=== PATIENT | female | born 1970 | race Caucasian/White ===

== ENCOUNTER 2017-07-21 09:30 | Inpatient (IN) | payer OTHER ==
[2017-07-14 11:24] VITALS: BMI 19.2
--- NOTE | 2017-07-20 09:41 | HP ---
Admitting History and Physical - Primary Care Physician PCP: Fortunato Gabriel - Admission Chief Complaint: Left breast cancer History of Present Illness: 47 year old premenapausal female who felt left breast mass 01/2017 at 6:00 . Patient was breast feeding , one year . US in 04/2017 showed 1.6 cm mass at 6:00 left breast with irregular borders. 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 She refused mammogram and underwent breast MRI showing original breast cancer and a 5mm focus at 12:00 birad 4. She is choosing to have a mastectomy. History Source: Patient Limitations to Obtaining History: No Limitations - Past Medical History Renal/: Yes: Renal Calculi (with septicemia) ...LMP: 07/12/17 ...: No Endocrine: Yes: Hypothyroidism - Past Surgical History Past Surgical History: Yes: (2015), Hernia Repair (inguinal 1987) Additional Past Surgical History: septicemia 2003 related to renal calculi - Smoking History Smoking history: Never smoked Have you smoked in the past 12 months: No - Alcohol/Substance Use Hx Alcohol Use: No Home Medications - Allergies Allergies/Adverse Reactions: Allergies Allergy/AdvReac Type Severity Reaction Status Date / Time No Known Drug Allergies Allergy Verified 07/14/17 11:09 - Home Medications Home Medications: Ambulatory Orders Levothyroxine [Synthroid -] 88 mcg PO DAILY 07/14/17 Multivitamins [Tab-A-Vit -] 1 tab PO DAILY 07/14/17 [place]-3/Dha/Epa/Fish Oil [[place] 3 500 Softgel] 1 each PO DAILY 07/14/17 Family Disease History - Family Disease History Family Disease History: CA: Father (prostate ca 80) Physical Examination Constitutional: Yes: Well Nourished, No Distress Breast(s): Yes: Other ( Difusely nodular with 1.5 cm left breast mass at 6:00 firm and mobile. right breast negative no adenopathy bilaterally) Problem List - Problems (1) Breast cancer, left breast Code(s): C50.912 - MALIGNANT NEOPLASM OF UNSPECIFIED SITE OF LEFT FEMALE BREAST Qualifiers: Breast location: overlapping sites of breast Patient sex: female Assessment/Plan Left total mastectomy sentenel node biopsy , lymphoscintogram, possible axillary node dissection reconstruction
[2017-07-21] MEDS ORDERED: ceFAZolin SODIUM 1 GM VIAL ONE ×2 (10:16→16:10)
[2017-07-21] MEDS ORDERED: ISOSULFAN BLUE 10 MG/ML VIAL SQ ONE (10:16)
[2017-07-21] MEDS ORDERED: BUPIVACAINE HCL/PF 2.5 MG/ML - 30 ML VIAL IJ ONE (10:16)
[2017-07-21] MEDS ORDERED: GENTAMICIN SO4 80 MG/2 ML VIAL ONE (10:16)
[2017-07-21] MEDS ORDERED: MIDAZOLAM HCL 2 MG/2 ML SINGLE DOSE VIAL ONE (10:20)
[2017-07-21] MEDS ORDERED: DEXAMETHASONE SOD PHOSPHATE/PF 10 MG/ML SDV ONE (10:20)
[2017-07-21] MEDS ORDERED: BUPIVACAINE HCL/PF (5 MG/ML) 30 ML VIAL IJ ONE (10:20)
[2017-07-21] MEDS ORDERED: ONDANSETRON 4 MG/2 ML VIAL IVPUSH PRN ×2 (11:17→13:05)
[2017-07-21] MEDS ORDERED: oxyCODONE HCL 5 MG TABLET PO PRN ×2 (11:22→11:23)
[2017-07-21] MEDS ORDERED: LACTATED RINGERS SOLUTION 1,000 ML IV SCH (11:30)
[2017-07-21] MEDS ORDERED: ACETAMINOPHEN 325 MG TABLET (FP) PO PRN (13:05)
[2017-07-21] MEDS ORDERED: ZOLPIDEM TARTRATE 5 MG TABLET PO PRN (13:05)
[2017-07-21] MEDS ORDERED: DEXTROSE 5%-0.45% SALINE 1,000 ML IV SCH (13:15)
[2017-07-21 13:57] LABS: HIV 1 & 2 AB NEGATIVE; HIV 1 AGp24 NEGATIVE
[2017-07-21] MEDS ORDERED: DEXAMETHASONE SOD PHOSPHATE 4 MG/1 ML VIAL ONE (14:31)
[2017-07-21] MEDS ORDERED: ONDANSETRON 4 MG/2 ML VIAL ONE (14:31)
[2017-07-21] MEDS ORDERED: PROPOFOL 20 ML ONE (14:33)
[2017-07-21] MEDS ORDERED: NITROGLYCERIN 2% OINTMENT - 1GM PACKET TD ONE ×2 (14:45→14:47)
[2017-07-21] MEDS ORDERED: NEOSTIGMINE METHYLSULFATE 0.5 MG/ML - 10 ML MDV ONE ×4 (14:45)
[2017-07-21] MEDS ORDERED: traMADol HCL 50 MG TABLET ONE (16:05)
[2017-07-21] MEDS ORDERED: ACETAMINOPHEN 325 MG TABLET (FP) ONE (16:05)
[2017-07-21] MEDS: traMADol HCL 50 MG TABLET PO SCH ×2 (16:10→20:47)
[2017-07-21] MEDS: ACETAMINOPHEN 325 MG TABLET (FP) PO SCH ×2 (16:10→20:48)
--- NOTE | 2017-07-21 18:21 | PN ---
Progress Note (short form) - Note Progress Note: vss af no collection ELEONORA working well with thin output pain well controled
[2017-07-21] MEDS: CEFAZOLIN 1 GM/D5W 1 GRAM/50 ML BAG IVPB SCH ×2 (18:30→20:48)
[2017-07-21] MEDS: diazePAM 2 MG TABLET PO SCH ×2 (18:37→23:36)
[2017-07-22] MEDS: traMADol HCL 50 MG TABLET PO SCH ×4 (03:33→15:06)
[2017-07-22] MEDS: ACETAMINOPHEN 325 MG TABLET (FP) PO SCH ×4 (03:34→15:05)
[2017-07-22] MEDS: CEFAZOLIN 1 GM/D5W 1 GRAM/50 ML BAG IVPB SCH ×3 (03:34→15:07)
[2017-07-22] MEDS: diazePAM 2 MG TABLET PO SCH ×2 (06:18→15:07)
[2017-07-22] MEDS ORDERED: LEVOTHYROXINE NA 88 MCG TABLET (FP) PO SCH (07:00)
[2017-07-22] MEDS ORDERED: HEPARIN NA (PORCINE) 5,000 UNITS/ML 1ML VIAL SQ SCH (08:00)
[2017-07-22 08:33] LABS: MCH 29.9 pg (25.7-33.7); MCHC 32.9 g/dl (32.0-36.0); MEAN CELL VOLUME 90.9 fl (80-96); RDW 12.8 % (11.6-15.6)
[2017-07-22 08:34] LABS: MEAN PLT VOLUME 12.6 fl (7.5-11.1); PLATELET COUNT 150 K/MM3 (134-434)
--- NOTE | 2017-07-22 09:09 | PN ---
Progress Note, Physician Chief Complaint: POD#1 Left breast cancer S/P total mastectomy with positive sentenel node , axillary node dissection overhead garage door hanger and alloderm History of Present Illness: Patient is uncomfortable but pain managed with current anesthesia protocol, OOB , eating no nausea or vomiting - Current Medication List Current Medications: Active Medications Acetaminophen (Tylenol -) 650 mg PO Q6H [facility] Last Admin: 07/22/17 03:34 Dose: 650 mg Acetaminophen (Tylenol -) 650 mg PO Q4H PRN PRN Reason: FEVER Diazepam (Valium -) 2 mg PO Q8H [facility] Last Admin: 07/22/17 06:18 Dose: Not Given Heparin Sodium (Porcine) (Heparin -) 5,000 unit SQ BID@0800,2000 [facility] Last Admin: 07/22/17 08:41 Dose: 5,000 unit Cefazolin Sodium (Ancef 1 Gm Premixed Ivpb -) 1 gram in 50 mls @ 100 mls/hr IVPB Q6H-IV [facility] Stop: 07/28/17 14:59 Last Admin: 07/22/17 03:34 Dose: 100 mls/hr Dextrose/Sodium Chloride (D5-1/2ns -) 1,000 mls @ 100 mls/hr IV ASDIR [facility] Last Admin: 07/21/17 11:45 Dose: 100 mls/hr Levothyroxine Sodium (Synthroid -) 88 mcg PO DAILY@0700 [facility] Last Admin: 07/22/17 06:18 Dose: 88 mcg Ondansetron HCl (Zofran Injection) 4 mg IVPUSH Q6H PRN PRN Reason: NAUSEA AND/OR VOMITING Oxycodone HCl (Roxicodone -) 5 mg PO Q4H PRN PRN Reason: PAIN LEVEL 1-5 Oxycodone HCl (Roxicodone -) 10 mg PO Q4H PRN PRN Reason: PAIN LEVEL 6-10 Tramadol HCl (Ultram -) 50 mg PO Q6H [facility] Last Admin: 07/22/17 03:33 Dose: 50 mg Zolpidem Tartrate (Ambien -) 5 mg PO HS PRN PRN Reason: Insomnia - Objective Vital Signs: Vital Signs Temperature 97.5 F L 07/22/17 06:00 Pulse Rate 74 07/22/17 07:20 Respiratory Rate 16 07/22/17 07:20 Blood Pressure 94/46 07/22/17 07:20 O2 Sat by Pulse Oximetry (%) 100 07/21/17 22:56 Constitutional: Yes: No Distress Breast(s): Yes: Other (Flap viable some echymosis over flap and dark area of skin at incision site, incision intact karlee drains funtioning) Labs: CBC, BMP 07/22/17 07:30 Problem List - Problems (1) Breast cancer, left breast Code(s): C50.912 - MALIGNANT NEOPLASM OF UNSPECIFIED SITE OF LEFT FEMALE BREAST Qualifiers: Breast location: overlapping sites of breast Patient sex: female Assessment/Plan cont IV antibiotics continue oral pain meds OOB spirometry SCD while in bed
[2017-07-22 09:29] VITALS: BP 106/52; PULSE 83; TEMP 98.1
--- NOTE | 2017-07-22 09:50 | OP ---
DATE OF OPERATION: 07/21/2017 PREOPERATIVE DIAGNOSIS: Left breast cancer. POSTOPERATIVE DIAGNOSIS: Left breast cancer with axillary metastasis. PROCEDURE: Left modified radical mastectomy with left sentinel node biopsy. ANESTHESIA: General intubated. ATTENDING SURGEON: Joni Gabriel MD CAR FERRY CAPTAIN: BINA Mcghee ESTIMATED BLOOD LOSS: 300 mL COMPLICATIONS: None. DESCRIPTION OF PROCEDURE: Patient was made aware of the risks and benefits of the procedure and consented. She was placed in supine position on the operating room table after going to Nuclear Medicine where left breast was injected with magnesium for lymphatic mapping. After general anesthesia was induced, the patient was intubated. The operative site was prepped and draped in the usual sterile fashion. Next, 2.5 mL of 1% isosulfan blue were infiltrated into the peritumoral tissues. Waiting approximately 10 minutes, with gentle manual compression, a curvilinear incision was made in the left axilla using blunt and sharp dissection. Tissues were dissected downward, revealing 2 clusters of blue lymph nodes which were all excised and submitted for frozen section. Frozen section was reported as one positive node out of seven taken. The breast was then approached. A horizontally-oriented, elliptical incision was made around the nipple, sparing some of the areola. Using electrocautery, skin flaps were made superior to the clavicle, medial to the sternum, lateral to latissimus dorsi, and anterior to inframammary fold. The breast cancer was very superficial, and it was basically sharply stripped off of the subcutaneous fat. The breast tissue was then taken off the pectoralis muscle, extending from medial to lateral to the latissimus dorsi. This was submitted as left breast with a short suture superior, long suture lateral. Specimen radiograph confirmed the presence of the cancer, but no clip was found at that time. However, because of the thin flap and the palpable nature of the cancer, I think that the clip is either must have been removed during surgery. The axillary dissection was then approached. The clavipectoral fascia was incised, and the axillary contents were retracted laterally, revealing along the chest wall, the long thoracic nerve. This was retracted along its length medially, and as the specimen was retracted laterally, the thoracodorsal trunk was identified and spared. The axillary contents were submitted as axillary contents, and investigation of the axilla revealed the thoracodorsal trunk and long thoracic nerve were intact. Palpation of the rest of the axilla revealed no evidence of axillary metastasis. Hemostasis was maintained by electrocautery and hemoclips. The procedure was then turned over to Dr. Douglas Ramos who is doing an expanded reconstruction. He will dictate his portion separately. JOIN GABRIEL M.D. [id number]
--- NOTE | 2017-07-22 11:08 | PN ---
Progress Note (short form) - Note Progress Note: Post op day#1.S/p left mastectomy with sentinel LN biopsy and L breast reconstruction under Ga uneventful.Patient stable and has pain score of 3-4/10 for which she is on medication.No any anesthesia related problem.Patient Dc from the anesthesia care,
--- NOTE | 2017-07-22 14:15 | PN ---
Progress Note (short form) - Note Progress Note: All tissues viable, healing well, OK for discharge VSS ELEONORA thin and functioning f/u one week
--- NOTE | 2017-07-23 14:49 | OP ---
DATE OF OPERATION: TITLE OF PROCEDURE: Left breast reconstruction using acellular dermal matrix and immediate insertion of tissue clinical dental technician, SPY intraoperative angiography interpretation, and complex, 4-cm left axillary wound closure. ATTENDING SURGEON: Douglas Rizzo MD ASSISTANTS: None. Procedures performed in combination with a left mastectomy and axillary lymph node dissection performed by Dr. Fortunato Gabriel; that portion of the procedure to be dictated separately by Dr. Fortunato Gabriel. The patient is seen in the holding area, marked for the access to the mastectomy, and the patient is then prepped and draped and positioned by the general surgical team. I am called in at the completion of the mastectomy. It has turned out the patient's sentinel lymph node biopsy was positive for breast cancer within the lymph nodes, and she had been converted to a left axillary lymph node dissection. At the completion of this, the wounds are copiously irrigated, and hemostasis is meticulously achieved. At this point, it is determined that the patient's pectoralis major muscle is insufficiently attached to maintain its inferior attachments, and a subpectoral dissection necessitates division of the inferior pectoral attachments. The pectoralis major muscle is elevated from lateral to medial, creating inferior pole defect which is to be reconstructed with acellular dermal matrix. At this point, the DermACELL brand acellular dermal matrix is brought onto the field. It is an 8 x 16 piece, rinsed in triple-antibiotic solution. The triple-antibiotic solution is a liter of normal saline with a gram of Ancef, 50,000 units of bacitracin, and 80 mg of gentamicin. It is oriented properly with the reticular-dermal side facing superficially. It is sewn to the chest wall inferomedially, inferiorly, and inferolaterally in accordance to a previously marked line where the IMF of the lifted contralateral breast will result. This suturing of the acellular dermal matrix is performed with a running, locking, 2-0 PDS suture. At this point, once the pocket has been fully created, gloves are changed, and the tissue clinical dental technician is then brought onto the field. Tissue clinical dental technician is an Allergan [id number] tissue clinical dental technician of 12 cm width. The pocket created accommodates the 12-cm-width implant. It is sutured in place using the incorporated suture tabs and seated at the inframammary fold. It is evacuated of all air in situ. Superior border of the acellular dermal matrix is then sewn to the inferior free border of the pectoralis major muscle with a running 2-0 PDS suture. Using the magnet finder, the tissue clinical dental technician is inflated to 100 mL of normal saline. The wounds are copiously irrigated with triple-antibiotic solution, and meticulous hemostasis is once again performed. The remaining areola is marked, and it is aligned. It is also pexied to the acellular dermal matrix to control its position during tissue expansion. A size 10 flat ELEONORA drain is placed into the wound through separate lateral incisions and secured with 2-0 silk drain sutures. One drain is placed in the inferior fornix of the wound, and a separate drain is on the lateral and superior of the wound. This second drain is also draping through the axilla to prevent a collection in the site of the lymph node dissection. The mastectomy skin flaps are then closed first with a running breast capsular suture with 3-0 Monocryl suture, followed by a series of interrupted, buried, deep dermal, 3-0 Monocryl suture, followed by a running subcuticular 3-0 Monocryl suture. A lateral dog ear is excised and closed separately. At this point, the SPY angiography is brought onto the field, and the skin flaps are assessed. After injection of indocyanine, the perfusion to the entirety of the skin flaps is found to be qualitatively excellent. The axillary wound is then closed, first with a series of interrupted 3-0 Monocryl suture within the deep axillary fascia. Skin is then closed with a series of interrupted, buried, deep dermal, 3-0 Monocryl suture, followed by a running subcuticular 3-0 Monocryl suture. Drains are placed to bulb suction. The wounds are dressed with bacitracin, nitroglycerin paste, Xeroform gauze, ABD gauze, and a surgical bra. Please note that throughout the entirety of the procedure, the patient had been wearing sequential compression devices and AMANDA hose. Patient received a gram of Ancef preoperatively. At the point of my scrubbing into the procedure, a timeout had been called. Patient, procedure, side, and sites were verified. The tissue clinical dental technician that was used was verified. DOUGLAS RIZZO M.D. [id number]
--- NOTE | 2017-07-24 12:46 | PATH ---
Surgical Pathology Report Patient Name: NIGEL GALLEGO Med. Rec. #: [id number] /Age/Gender: 1970 (Age: 47) / F Account: [id number] Location: [facility] MED-SURG Taken: 07/21/2017 Received: 07/21/2017 Reported: 07/24/2017 Physicians: Fortunato Gabriel M.D. Specimen(s) Received A: LEFT AXILLARY SENTINAL NODE. FS B: LEFT BREAST MASTECTOMY C: LEFT AXILLARY CONTENTS Clinical History Left breast invasive cancer Intraoperative Consult Diagnosis Left axillary sentinel nodes, frozen section: Metastatic carcinoma involving one of 7 lymph nodes (1/7). Dr. Bety Martinez M.D., 07/21/17 Final Diagnosis A. LYMPH NODES, LEFT AXILLARY SENTINEL NODES, EXCISION: METASTATIC CARCINOMA PRESENT IN ONE OF SEVEN LYMPH NODES (1/7), 8 MM IN GREATEST DIMENSION. NO EXTRACAPSULAR EXTENSION IDENTIFIED. B. LEFT BREAST MASTECTOMY: INVASIVE DUCTAL CARCINOMA, ALAN GRADE 2 OF 3 (TUBULE SCORE 3 OF 3, NUCLEAR GRADE 2 OF 3, MITOTIC SCORE 1 OF 3, TOTAL 6 OF 9), MEASURING 1.5 CM IN GREATEST DIMENSION. MINOR COMPONENT OF DUCTAL CARCINOMA IN SITU (DCIS), INTERMEDIATE NUCLEAR GRADE, SOLID AND CRIBRIFORM PATTERN WITH ASSOCIATED CALCIFICATION PRESENT. ADDITIONAL SEPARATE FOCUS OF DCIS, INTERMEDIATE NUCLEAR GRADE, SOLID PATTERN WITH ASSOCIATED CALCIFICATION MEASURING APPROXIMATELY 1 MM IN GREATEST DIMENSION PRESENT IN RANDOM SECTION FROM LOWER INNER QUADRANT. INVASIVE CARCINOMA IS 1 MM FROM THE ANTERIOR MARGIN. DCIS IS 5 MM FROM THE ANTERIOR MARGIN. NO DEFINITE VASCULAR INVASION IDENTIFIED. CHANGES CONSISTENT WITH PRIOR BIOPSY SITE PRESENT. REMAINING BREAST TISSUE WITH SMALL FIBROADENOMA, ALONG WITH FIBROCYSTIC CHANGES INCLUDING ADENOSIS, STROMAL FIBROSIS, DUCTAL DILATATION, AND SECRETORY CHANGES. C. LYMPH NODES, LEFT AXILLARY, DISSECTION: NO METASTATIC CARCINOMA IDENTIFIED IN SEVEN LYMPH NODES (0/7). Comment: Also see prior Slide Review [id number]. Immunohistochemical stains for p63 and SMM-HC on Specimen B performed and interpreted at [facility] show loss of the myoepithelial cell layer in the areas of invasive carcinoma. Comments Breast Invasive Carcinoma: Surgical Pathology Cancer Case Summary Based on AJCC/UICC TNM, 7th edition Procedure _X__ Total mastectomy (including nipple and skin) Lymph Node Sampling (select all that apply) (required only if lymph nodes are present in the specimen) _X__ [place] lymph node(s) _X__ Axillary dissection (partial or complete dissection) Specimen Laterality _X__ Left Tumor Size: Size of Largest Invasive Carcinoma Greatest dimension of largest focus of invasion over 1 mm: 15 mm Tumor Focality _X__ Single focus of invasive carcinoma Macroscopic and Microscopic Extent of Tumor Skin _X__ Invasive carcinoma does not invade into the dermis or epidermis Nipple _X__ DCIS does not involve the nipple epidermis Ductal Carcinoma In Situ (DCIS) _X__ DCIS is present _X__ as a minor component (< 25% of tumor) Histologic Type of Invasive Carcinoma : _X__ Invasive carcinoma of no special type (ductal, not otherwise specified) Histologic Grade: (Alan Histologic Score) Tubular Differentiation _X__ Score 3 Nuclear Pleomorphism _X__ Score 2 Mitotic Rate _X__ Score 1 Overall Grade _X__ Grade 2: scores of 6 or 7 (moderately differentiated) Margins _X__ Margins uninvolved by invasive carcinoma (required only if residual invasive carcinoma is present in specimen) Distance from closest margin: 1 mm Specify margin: ANTERIOR _X__ Margins uninvolved by DCIS (required only if residual DCIS is present in specimen) Distance from closest margin: 5 mm Specify margin: ANTERIOR Lymph-Vascular Invasion _X__ Not identified Lymph Nodes Total number of lymph nodes examined (sentinel and nonsentinel): 14 Number of sentinel lymph nodes examined: 7 Number of lymph nodes with macrometastases ( > 2 mm): 1 Number of lymph nodes with micrometastases (>0.2 mm to 2 mm and/or >200cells):0 Number of lymph nodes with isolated tumor cells (=0.2 mm and =200 cells): 0 Size of largest metastatic deposit (if present): 8 mm Extranodal Extension _X__ Not identified Pathologic Staging (pTNM) Primary Tumor (Invasive Carcinoma): pT1c Regional Lymph Nodes (pN): pN1a Biomarker Studies Results of ER and WV studies performed on this specimen (block #B3) at [facility] are as follows: ER (clone [id number] mouse monoclonal antibody by [employer]): >90% nuclear staining with strong intensity (Positive). WV (clone16 mouse monoclonal antibody by [employer]) : >90% nuclear staining with strong intensity (Positive). Results of Her2 studies will be reported separately in an addendum. Positive and negative controls (internal if applicable) show appropriate results. Formalin fixation and cold ischemic times are within current ASCO/CAP recommendations for ER, WV and Her2 testing. Electronically Signed Chacorta Sanchez M.D. Addendum Reported: 07/27/2017 Addendum Diagnosis Results of Her2 (IHC) & Ki-67 studies performed on block "B3 " at [place], [place] ([id number]) are as follows: Her2 IHC (EP3 from [employer], formerly known as [id number], using [employer] Polymer Refine detection kit): 1+ NEGATIVE Ki-67: ~25% (Intermediate proliferative index) Positive and negative controls (internal if applicable) show appropriate results. Chacorta Sanchez M.D. Gross Description A. Received fresh for frozen section labeled "left axillary sentinel nodes," are 5 portions of fibrofatty tissue from which 7 lymph nodes ranging from 0.2-1.0 cm are dissected. A frozen section is performed on the lymph nodes. The frozen section residue is entirely submitted in 2 cassettes as follows: 1-two large whole lymph nodes; 2-five small whole lymph nodes. B. Received in formalin, labeled "left breast mastectomy," is a 264 gram, 14.0 x 11.5 x 3.2 cm. left mastectomy specimen with a short suture marking the superior aspect and a long suture marking the lateral aspect of the specimen, per the surgeon. The anterior surface displays a 5.0 x 2.7 cm laguna, elliptical portion of skin with a 1.1 cm in diameter nipple. The deep margin is inked black and the anterior soft tissue margin is inked blue. The specimen is serially sectioned from medial to lateral. Sectioning reveals a 1.5 x 1.2 x 1.1 cm laguna, indurated mass in the lower outer quadrant (LOQ). The mass is focally 0.2 cm from the anterior soft tissue margin. The mass is 1.7 cm from the deep margin. The remaining breast parenchyma displays abundant dense, white, focally firm fibrous tissue. [employer] sections are submitted in 15 cassettes as follows: 1-serially sectioned nipple; 2-subareolar shave; 3-4-one full face section of LOQ mass each (each with anterior soft tissue margin); 5-additional mass with anterior soft tissue margin; 1-4-eqqnafgnjq LOQ tissue; 8-9-upper outer quadrant; 10-11-upper inner quadrant; 12-13-lower inner quadrant; 14-skin and anterior soft tissue margin; 15-deep margin. Time to formalin fixation: 19 minutes Total formalin fixation time: Approximately 29 hours. C. Received in formalin labeled "left axillary contents," is a 7.4 x 6.0 x 2.0 cm aggregate of yellow, lobulated adipose tissue. Sectioning reveals multiple laguna, irregular lymph nodes ranging from 0.4-2.3 cm in greatest dimension. Additionally, there is a 2.8 cm in greatest dimension hemorrhagic focus identified. Sections are submitted in 4 cassettes as follows: 1-2-two whole possible lymph nodes each; 3-three whole possible lymph nodes; 4-section of hemorrhagic focus. 07/22/201707/22/2017
== END 2017-07-22 16:51 | disposition home or self-care (01) | DRG 362 ==
LOC: FM/S 09:34
PROVIDERS: ADMIT Surgery Surgical Oncology; ATTEND Surgery Surgical Oncology
PROC: 07B60ZX Excision of Left Axillary Lymphatic, Open Approach, Diagnostic (ICD-10-PCS; 2017-07-21)
PROC: 0HTU0ZZ Resection of Left Breast, Open Approach (ICD-10-PCS; principal; 2017-07-21 10:53)
PROC: 07T60ZZ Resection of Left Axillary Lymphatic, Open Approach (ICD-10-PCS; 2017-07-21 10:53)
PROC: 0HHU0NZ Insertion of Tissue Expander into Left Breast, Open Approach (ICD-10-PCS; 2017-07-21 10:53)
DX: C50.812 Malignant neoplasm of overlapping sites of left female breast (principal); C77.3 Secondary and unspecified malignant neoplasm of axilla and upper limb lymph nodes; E03.9 Hypothyroidism, unspecified; Z80.42 Family history of malignant neoplasm of prostate
CPT/HCPCS: 36415; 78195-TC; 84703; 85027; 86803; 87389; 88307-TC; 88331-TC; 88332; 88341-TC; 94010; 94760; A9541; J1644

== ENCOUNTER 2017-09-04 13:45 | Day surgery (SDC) | payer OTHER ==
--- NOTE | 2017-08-31 11:57 | HP ---
Admitting History and Physical - Primary Care Physician PCP: Fortunato Gabriel - Admission Chief Complaint: left breast cancer History of Present Illness: Patient is S/P left mastectomy (sec to invasive ductal ca) with axillary node biopsies who on final path was noted to have 1/7 positive nodes. Patient is now presenting for lifeport insertion in preparation for chemo therapy. History Source: Patient Limitations to Obtaining History: No Limitations - Past Medical History Renal/: Yes: Renal Calculi (with septicemia) ...LMP: 07/12/17 Endocrine: Yes: Hypothyroidism - Past Surgical History Past Surgical History: Yes: (2015), Hernia Repair (inguinal 1987) - Smoking History Smoking history: Never smoked Have you smoked in the past 12 months: No - Alcohol/Substance Use Hx Alcohol Use: No Home Medications - Allergies Allergies/Adverse Reactions: Allergies Allergy/AdvReac Type Severity Reaction Status Date / Time No Known Drug Allergies Allergy Verified 07/14/17 11:09 - Home Medications Home Medications: Ambulatory Orders Levothyroxine [Synthroid -] 88 mcg PO DAILY 07/14/17 Multivitamins [Tab-A-Vit -] 1 tab PO DAILY 07/14/17 [place]-3/Dha/Epa/Fish Oil [[place] 3 500 Softgel] 1 each PO DAILY 07/14/17 Family Disease History - Family Disease History Family Disease History: CA: Father (prostate ca 80) Review of Systems - Review of Systems Constitutional: reports: No Symptoms Cardiovascular: reports: No Symptoms Respiratory: reports: No Symptoms Physical Examination Constitutional: Yes: Well Nourished Breast(s): Yes: Left (Left well healed incision without erythema or discharge noted.) Problem List - Problems (1) Breast cancer, left breast Code(s): C50.912 - MALIGNANT NEOPLASM OF UNSPECIFIED SITE OF LEFT FEMALE BREAST Qualifiers: Breast location: overlapping sites of breast Estrogen receptor status: positive Patient sex: female Qualified Code(s): C50.812 - Malignant neoplasm of overlapping sites of left female breast; Z17.0 - Estrogen receptor positive status [ER+]; Z17.0 - Estrogen receptor positive status [ER+] Assessment/Plan insertion of infusaport
[2017-09-03 11:07] VITALS: BMI 19.2
[2017-09-04] MEDS ORDERED: ONDANSETRON 4 MG/2 ML VIAL IVPUSH PRN ×2 (16:07→16:47)
[2017-09-04] MEDS ORDERED: LIDOCAINE HCL 1%, 10 MG/ML (20ML VIAL) ONE ×2 (16:10→16:14)
[2017-09-04] MEDS ORDERED: BUPIVACAINE HCL/PF 0.25% (2.5MG/ML) 10 ML VIAL ONE ×3 (16:10→16:15)
[2017-09-04] MEDS ORDERED: DEXTROSE 5%-0.45% SALINE 1,000 ML IV SCH (16:15)
[2017-09-04] MEDS ORDERED: KETOROLAC TROMETHAMINE 30 MG/1 ML VIAL IVPUSH ONE (16:15)
[2017-09-04] MEDS ORDERED: PROPOFOL 20 ML ONE ×2 (16:17→16:44)
[2017-09-04] MEDS ORDERED: MIDAZOLAM HCL 2 MG/2 ML SINGLE DOSE VIAL ONE (16:17)
[2017-09-04] MEDS ORDERED: ceFAZolin SODIUM 1 GM VIAL IVPB ONE (16:30)
[2017-09-04] MEDS ORDERED: ceFAZolin SODIUM 1 GM VIAL ONE (16:36)
[2017-09-04] MEDS ORDERED: HEPARIN NA (PORCINE) 5,000 UNITS/ML 1ML VIAL ONE (16:37)
[2017-09-04] MEDS ORDERED: oxyCODONE HCL 5 MG TABLET PO PRN (16:47)
[2017-09-04] MEDS ORDERED: LACTATED RINGERS SOLUTION 1,000 ML IV SCH (17:00)
[2017-09-04] MEDS ORDERED: LIDOCAINE HCL 1%, 10 MG/ML (20ML VIAL) INF ONE (17:03)
[2017-09-04 18:25] VITALS: TEMP 99
[2017-09-04 19:26] VITALS: BP 99/62; PULSE 75
--- NOTE | 2017-09-07 11:18 | OP ---
DATE OF OPERATION: 09/04/2017 PREOPERATIVE DIAGNOSIS: Left breast cancer. POSTOPERATIVE DIAGNOSIS: Left breast cancer. PROCEDURE: Right single-lumen subclavian replacement. ANESTHESIA: IV sedation with local. ATTENDING SURGEON: Fortunato Gabriel MD ESTIMATED BLOOD LOSS: Minimal. COMPLICATIONS: None. DESCRIPTION OF PROCEDURE: The patient was made aware of the risks and benefits of the procedure and consented. She was placed in the supine position, and after IV sedation was admitted, the operative site was prepped and draped in the usual sterile fashion. Then 1% lidocaine was used for local anesthesia. Using the Seldinger technique, the right subclavian vein was easily localized, and the wire was placed into good position and documented by intraoperative fluoroscopy. Incision was made over the puncture site, and another inferomedial incision was made. The inferior incision was enlarged, and an inferior pocket was made using blunt and sharp dissection. The catheter was tunneled from the large incision to the smaller incision. The port was placed into the inferior pocket, and the catheter was fashioned to the proper length. Under direct fluoroscopic control, dilator and introducer were introduced over the wire in good position. The dilator and wire were removed, and the catheter was placed through the introducer and, again, found to be in good position. The introducer was stripped away. There was easy withdrawal of blood and infusion of dilute heparinized saline. Then 1 mL of concerned heparinized saline was placed into the port. The port was then sutured to the deep tissue with 2-0 Prolene. The wounds were copiously irrigated with normal saline. Hemostasis was maintained by electrocautery. The wound was then closed with deep 3-0 Vicryl followed by a running subcuticular 4-0 Monocryl. Dermabond was then applied, and the patient having tolerated the procedure well, was transferred to the recovery room where chest x-ray showed good placement of the catheter with no evidence of complications. FORTUNATO GABRIEL M.D. [id number]
== END 2017-09-04 19:40 | disposition home or self-care (01) ==
LOC: JASU-SURG 13:45
PROVIDERS: ATTEND Surgery Surgical Oncology
PROC: B518ZZA Fluoroscopy of Superior Vena Cava, Guidance (ICD-10-PCS; 2017-09-04)
PROC: 02HV33Z Insertion of Infusion Device into Superior Vena Cava, Percutaneous Approach (ICD-10-PCS; principal; 2017-09-04 15:30)
DX: C50.912 Malignant neoplasm of unspecified site of left female breast (principal)
CPT/HCPCS: 36558; 77001; C1751; 71045-TC; 76000-TC; 84703; 94760; J1644

== ENCOUNTER 2017-09-07 07:28 | Day surgery (SDC) | payer OTHER ==
[2017-09-07] MEDS ORDERED: DEXAMETHASONE INJECTION 20 MG, RANITIDINE INJECTION 50 MG, DIPHENHYDRAMINE 50 MG in SOD... IVPB ONE (08:00)
[2017-09-07] MEDS ORDERED: PALONOSETRON HCL 0.25 MG/5 ML VIAL IVPB ONE (08:00)
[2017-09-07] MEDS ORDERED: DOCETAXEL IV ONE (08:30)
[2017-09-07] MEDS ORDERED: SODIUM CHLORIDE IV ONE (08:30)
[2017-09-07] MEDS ORDERED: SODIUM CHLORIDE IVPB ONE (09:30)
[2017-09-07] MEDS ORDERED: CYCLOPHOSPHAMIDE IVPB ONE (09:30)
[2017-09-07 11:26] LABS: BASO % 0.3 % (0-2.0); HEMOGLOBIN 13.3 GM/dL (10.7-15.3); LYMPH % 12.3 % (8-40); MCH 29.8 pg (25.7-33.7); MCHC 32.4 g/dl (32.0-36.0); MEAN CELL VOLUME 92.1 fl (80-96); MEAN PLT VOLUME 11.7 fl (7.5-11.1); MONO % 6.2 % (3.8-10.2); NEUT % 81.2 % (42.8-82.8); RBC 4.45 M/mm3 (3.60-5.2); RDW 12.9 % (11.6-15.6); WHITE BLOOD COUNT 9.2 K/mm3 (4.0-10.0)
[2017-09-07 11:50] LABS: ALBUMIN 4.1 g/dl (3.4-5.0); ALK PHOS 81 U/L (45-117); ANION GAP 8 (8-16); BILIRUBIN,DIRECT < 0.2 mg/dL (0.0-0.2); BILIRUBIN,TOTAL 0.3 mg/dL (0.2-1.0); BLOOD UREA NITROGEN 13 mg/dL (7-18); CALCIUM 9.3 mg/dL (8.5-10.1); CHLORIDE 105 mmol/L (98-107); CO2 27 mmol/L (21-32); CREATININE 0.6 mg/dL (0.55-1.02); GLUCOSE,RANDOM 133 mg/dL (74-106); MAGNESIUM 2.2 mg/dL (1.8-2.4); SGOT/AST 11 U/L (15-37); SGPT/ALT 25 U/L (12-78); SODIUM 140 mmol/L (136-145); TOT PROT 7.8 g/dl (6.4-8.2)
[2017-09-07 11:56] LABS: PLATELET COUNT 187 K/MM3 (134-434)
[2017-09-07 11:57] LABS: PLATELET ESTIMATE ADEQUATE
[2017-09-07] MEDS ORDERED: SODIUM CHLORIDE 500 ML IV STA ×2 (13:15→13:37)
[2017-09-07] MEDS ORDERED: DEXAMETHASONE SOD PHOSPHATE 10 MG/1 ML VIAL IVPB ONE (13:30)
[2017-09-07 16:29] VITALS: TEMP 98.1
[2017-09-07] MEDS ORDERED: PORTA CATH FLUSH 10 ML IVPUSH ONE (16:29)
[2017-09-07 17:15] VITALS: BP 100/62; PULSE 69
== END 2017-09-07 17:30 | disposition home or self-care (01) ==
LOC: JONCCHEMO 07:28 → J7W 12:56 → JONCCHEMO 17:30
PROVIDERS: ATTEND Internal Medicine Hematology & Oncology
DX: Z51.11 Encounter for antineoplastic chemotherapy (principal); C50.912 Malignant neoplasm of unspecified site of left female breast
CPT/HCPCS: 36415; 80053; 80076; 83735; 85025; 96361; 96367; 96375; 96413; 96417; J1100; J2469; J9070; J9171

== ENCOUNTER 2017-09-10 09:47 | Day surgery (SDC) | payer OTHER ==
[2017-09-10] MEDS ORDERED: TBO-FILGRASTIM 300 MCG/0.5 ML DISP.SYRINGE SQ ONE (12:30)
[2017-09-10 12:33] LABS: BASO % 0.6 % (0-2.0); EOS % 1.9 % (0-4.5); HEMATOCRIT 38.8 % (32.4-45.2); HEMOGLOBIN 12.6 GM/dL (10.7-15.3); LYMPH % 11.3 % (8-40); MCH 29.7 pg (25.7-33.7); MCHC 32.5 g/dl (32.0-36.0); MEAN CELL VOLUME 91.4 fl (80-96); MONO % 0.6 % (3.8-10.2); NEUT % 85.6 % (42.8-82.8); PLATELET COUNT 136 K/MM3 (134-434); RBC 4.24 M/mm3 (3.60-5.2); WHITE BLOOD COUNT 6.6 K/mm3 (4.0-10.0)
[2017-09-10 13:27] LABS: ALBUMIN 3.6 g/dl (3.4-5.0); ALK PHOS 81 U/L (45-117); ANION GAP 9 (8-16); BILIRUBIN,DIRECT < 0.2 mg/dL (0.0-0.2); BILIRUBIN,TOTAL 0.2 mg/dL (0.2-1.0); BLOOD UREA NITROGEN 15 mg/dL (7-18); CALCIUM 8.4 mg/dL (8.5-10.1); CHLORIDE 103 mmol/L (98-107); CO2 27 mmol/L (21-32); CREATININE 0.5 mg/dL (0.55-1.02); GLUCOSE,RANDOM 88 mg/dL (74-106); MAGNESIUM 2.2 mg/dL (1.8-2.4); POTASSIUM 3.8 mmol/L (3.5-5.1); SGOT/AST 16 U/L (15-37); SGPT/ALT 29 U/L (12-78); SODIUM 139 mmol/L (136-145); TOT PROT 6.9 g/dl (6.4-8.2)
[2017-09-10 16:46] VITALS: BP 90/49; PULSE 75; TEMP 98.3
== END 2017-09-10 14:00 | disposition home or self-care (01) ==
LOC: JONCCHEMO 09:47 → J7W 12:51 → JONCCHEMO 14:00
PROVIDERS: ATTEND Internal Medicine Hematology & Oncology
PROC: 3E013GC Introduction of Other Therapeutic Substance into Subcutaneous Tissue, Percutaneous Approach (ICD-10-PCS; principal; 2017-09-10)
DX: C50.812 Malignant neoplasm of overlapping sites of left female breast (principal); Z17.0 Estrogen receptor positive status [ER+]
CPT/HCPCS: 36415; 80053; 80076; 83735; 85025; 96372; J1447

== ENCOUNTER 2017-09-11 07:47 | Day surgery (SDC) | payer OTHER ==
[2017-09-11] MEDS ORDERED: TBO-FILGRASTIM 300 MCG/0.5 ML DISP.SYRINGE SQ ONE (08:00)
[2017-09-11 14:10] VITALS: BP 105/68; PULSE 87; TEMP 98.6
== END 2017-09-11 14:13 | disposition home or self-care (01) ==
LOC: JONCCHEMO 07:47 → J7W 13:53 → JONCCHEMO 14:13
PROVIDERS: ATTEND Internal Medicine Hematology & Oncology
PROC: 3E013GC Introduction of Other Therapeutic Substance into Subcutaneous Tissue, Percutaneous Approach (ICD-10-PCS; principal; 2017-09-11)
DX: C50.812 Malignant neoplasm of overlapping sites of left female breast (principal); Z17.0 Estrogen receptor positive status [ER+]
CPT/HCPCS: 96372; J1447

== ENCOUNTER 2017-09-12 14:25 | Day surgery (SDC) | payer OTHER ==
[~2017-09-12 14:25] MED LIST: TBO-FILGRASTIM 300 MCG/0.5 ML DISP.SYRINGE SQ ONE
[2017-09-12 15:28] VITALS: BP 97/56; PULSE 83; TEMP 98.6
== END 2017-09-12 15:09 | disposition home or self-care (01) ==
LOC: JONCCHEMO 14:25 → J7W 14:26 → JONCCHEMO 15:09
PROVIDERS: ATTEND Internal Medicine Hematology & Oncology
PROC: 3E013GC Introduction of Other Therapeutic Substance into Subcutaneous Tissue, Percutaneous Approach (ICD-10-PCS; principal; 2017-09-12)
DX: C50.812 Malignant neoplasm of overlapping sites of left female breast (principal); Z17.0 Estrogen receptor positive status [ER+]
CPT/HCPCS: 96372; J1447

== ENCOUNTER 2017-09-14 09:27 | Day surgery (SDC) | payer OTHER ==
[2017-09-14] MEDS ORDERED: TBO-FILGRASTIM 300 MCG/0.5 ML DISP.SYRINGE SQ ONE (10:30)
[2017-09-14 11:13] VITALS: BP 92/59; PULSE 75; TEMP 98.2
== END 2017-09-14 10:30 | disposition home or self-care (01) ==
LOC: JONCCHEMO 09:27 → J7W 09:52 → JONCCHEMO 10:30
PROVIDERS: ATTEND Internal Medicine Hematology & Oncology
PROC: 3E013GC Introduction of Other Therapeutic Substance into Subcutaneous Tissue, Percutaneous Approach (ICD-10-PCS; principal; 2017-09-14)
DX: C50.812 Malignant neoplasm of overlapping sites of left female breast (principal); Z17.0 Estrogen receptor positive status [ER+]; Z76.89 Persons encountering health services in other specified circumstances
CPT/HCPCS: 96372; J1447

== ENCOUNTER 2017-09-29 07:28 | Day surgery (SDC) | payer OTHER ==
[2017-09-29] MEDS ORDERED: DEXAMETHASONE INJECTION 20 MG, RANITIDINE INJECTION 50 MG, DIPHENHYDRAMINE 50 MG in SOD... IVPB ONE (10:00)
[2017-09-29] MEDS ORDERED: DEXAMETHASONE INJECTION 20 MG in SODIUM CHLORIDE 100 ML IVPB ONE (10:00)
[2017-09-29] MEDS ORDERED: PALONOSETRON HCL 0.25 MG/5 ML VIAL IVPUSH ONE (10:00)
[2017-09-29] MEDS ORDERED: SODIUM CHLORIDE IV ONE (10:30)
[2017-09-29] MEDS ORDERED: DOCETAXEL IV ONE (10:30)
[2017-09-29 10:41] LABS: BASO % 1.3 % (0-2.0); EOS % 0.6 % (0-4.5); HEMATOCRIT 34.9 % (32.4-45.2); HEMOGLOBIN 11.4 GM/dL (10.7-15.3); LYMPH % 28.9 % (8-40); MCH 29.5 pg (25.7-33.7); MCHC 32.6 g/dl (32.0-36.0); MEAN CELL VOLUME 90.5 fl (80-96); MEAN PLT VOLUME 11.1 fl (7.5-11.1); MONO % 8.8 % (3.8-10.2); NEUT % 60.4 % (42.8-82.8); PLATELET COUNT 278 K/MM3 (134-434); RBC 3.86 M/mm3 (3.60-5.2); RDW 13.2 % (11.6-15.6); WHITE BLOOD COUNT 4.5 K/mm3 (4.0-10.0)
[2017-09-29 11:05] LABS: ALBUMIN 3.5 g/dl (3.4-5.0); ALK PHOS 75 U/L (45-117); ANION GAP 7 (8-16); BILIRUBIN,DIRECT < 0.2 mg/dL (0.0-0.2); BILIRUBIN,TOTAL 0.4 mg/dL (0.2-1.0); BLOOD UREA NITROGEN 16 mg/dL (7-18); CALCIUM 8.1 mg/dL (8.5-10.1); CHLORIDE 107 mmol/L (98-107); CO2 28 mmol/L (21-32); CREATININE 0.5 mg/dL (0.55-1.02); GLUCOSE,RANDOM 100 mg/dL (74-106); POTASSIUM 3.9 mmol/L (3.5-5.1); SGOT/AST 11 U/L (15-37); SGPT/ALT 23 U/L (12-78); SODIUM 142 mmol/L (136-145); TOT PROT 6.5 g/dl (6.4-8.2)
[2017-09-29] MEDS ORDERED: CYCLOPHOSPHAMIDE IVPB ONE (11:30)
[2017-09-29] MEDS ORDERED: SODIUM CHLORIDE IVPB ONE (11:30)
[2017-09-29] MEDS ORDERED: SODIUM CHLORIDE 500 ML IV ONE (12:00)
[2017-09-29 17:30] VITALS: BP 90/55; PULSE 65; TEMP 98
[2017-09-29] MEDS ORDERED: PORTA CATH FLUSH 10 ML IVPUSH ONE (17:30)
== END 2017-09-29 17:25 | disposition home or self-care (01) ==
LOC: JONCCHEMO 07:28 → J7W 11:28 → JONCCHEMO 17:20
PROVIDERS: ATTEND Internal Medicine Hematology & Oncology
DX: Z51.11 Encounter for antineoplastic chemotherapy (principal); C50.812 Malignant neoplasm of overlapping sites of left female breast; Z17.0 Estrogen receptor positive status [ER+]
CPT/HCPCS: 36415; 80053; 80076; 83735; 84702; 85025; 96361; 96367; 96375; 96413; 96415; 96417; J1100; J2469; J9070; J9171

== ENCOUNTER 2017-09-30 07:56 | Day surgery (SDC) | payer OTHER ==
[2017-09-30] MEDS ORDERED: TBO-FILGRASTIM 300 MCG/0.5 ML DISP.SYRINGE SQ ONE (10:00)
[2017-09-30 16:09] VITALS: BP 92/56; PULSE 70; TEMP 97.7
== END 2017-09-30 14:26 | disposition home or self-care (01) ==
LOC: JONCCHEMO 07:56 → J7W 13:55 → JONCCHEMO 14:26
PROVIDERS: ATTEND Internal Medicine Hematology & Oncology
PROC: 3E013GC Introduction of Other Therapeutic Substance into Subcutaneous Tissue, Percutaneous Approach (ICD-10-PCS; principal; 2017-09-30)
DX: C50.812 Malignant neoplasm of overlapping sites of left female breast (principal); Z17.0 Estrogen receptor positive status [ER+]; Z76.89 Persons encountering health services in other specified circumstances
CPT/HCPCS: 96372; J1447

== ENCOUNTER 2017-10-01 07:37 | Day surgery (SDC) | payer OTHER ==
[2017-10-01] MEDS ORDERED: TBO-FILGRASTIM 300 MCG/0.5 ML DISP.SYRINGE SQ ONE (10:00)
[2017-10-01 15:21] VITALS: BP 94/60; PULSE 90; TEMP 98.3
== END 2017-10-01 12:20 | disposition home or self-care (01) ==
LOC: JONCCHEMO 07:37
PROVIDERS: ATTEND Internal Medicine Hematology & Oncology
PROC: 3E013GC Introduction of Other Therapeutic Substance into Subcutaneous Tissue, Percutaneous Approach (ICD-10-PCS; principal; 2017-10-01)
DX: C50.812 Malignant neoplasm of overlapping sites of left female breast (principal); Z17.0 Estrogen receptor positive status [ER+]; Z76.89 Persons encountering health services in other specified circumstances
CPT/HCPCS: 96372; J1447

== ENCOUNTER 2017-10-19 07:36 | Day surgery (SDC) | payer OTHER ==
[2017-10-19] MEDS ORDERED: PALONOSETRON HCL 0.25 MG/5 ML VIAL IVPUSH ONE (10:00)
[2017-10-19] MEDS ORDERED: DEXAMETHASONE INJECTION 20 MG, RANITIDINE INJECTION 50 MG, DIPHENHYDRAMINE 50 MG in SOD... IVPB ONE (10:00)
[2017-10-19] MEDS ORDERED: SODIUM CHLORIDE IV ONE (10:30)
[2017-10-19] MEDS ORDERED: DOCETAXEL IV ONE (10:30)
[2017-10-19] MEDS ORDERED: SODIUM CHLORIDE IVPB ONE (11:30)
[2017-10-19] MEDS ORDERED: CYCLOPHOSPHAMIDE IVPB ONE (11:30)
[2017-10-19 13:46] LABS: BASO % 1.5 % (0-2.0); EOS % 1.8 % (0-4.5); HEMOGLOBIN 12.5 GM/dL (10.7-15.3); LYMPH % 45.6 % (8-40); MCH 30.3 pg (25.7-33.7); MCHC 33.7 g/dl (32.0-36.0); MEAN CELL VOLUME 89.9 fl (80-96); MEAN PLT VOLUME 10.6 fl (7.5-11.1); MONO % 13.1 % (3.8-10.2); RBC 4.11 M/mm3 (3.60-5.2); RDW 13.9 % (11.6-15.6)
[2017-10-19 14:16] LABS: ALBUMIN 3.7 g/dl (3.4-5.0); ANION GAP 11 (8-16); BILIRUBIN,DIRECT < 0.2 mg/dL (0.0-0.2); BILIRUBIN,TOTAL 0.5 mg/dL (0.2-1.0); BLOOD UREA NITROGEN 15 mg/dL (7-18); CALCIUM 8.4 mg/dL (8.5-10.1); CHLORIDE 105 mmol/L (98-107); CO2 26 mmol/L (21-32); CREATININE 0.5 mg/dL (0.55-1.02); GLUCOSE,RANDOM 99 mg/dL (74-106); MAGNESIUM 2.1 mg/dL (1.8-2.4); PLATELET COUNT 136 K/MM3 (134-434); POTASSIUM 3.8 mmol/L (3.5-5.1); SGOT/AST 20 U/L (15-37); SGPT/ALT 26 U/L (12-78); SODIUM 142 mmol/L (136-145); TOT PROT 7.1 g/dl (6.4-8.2)
[2017-10-19 14:17] LABS: ALK PHOS 74 U/L (45-117)
[2017-10-19] MEDS ORDERED: DEXAMETHASONE SOD PHOSPHATE 10 MG/1 ML VIAL IVPB ONE (14:28)
[2017-10-19] MEDS ORDERED: SODIUM CHLORIDE 500 ML IV SCH (14:45)
[2017-10-19] MEDS ORDERED: DEXAMETHASONE SOD PHOSPHATE 10 MG/1 ML VIAL ONE (15:29)
[2017-10-19 18:31] VITALS: PULSE 73; TEMP 97.8
[2017-10-19 18:32] VITALS: BP 100/54
== END 2017-10-19 18:10 | disposition home or self-care (01) ==
LOC: JONCCHEMO 07:36 → J7W 14:56 → JONCCHEMO 18:10
PROVIDERS: ATTEND Internal Medicine Hematology & Oncology
DX: Z51.11 Encounter for antineoplastic chemotherapy (principal); C50.812 Malignant neoplasm of overlapping sites of left female breast; Z17.0 Estrogen receptor positive status [ER+]
CPT/HCPCS: 36415; 80053; 80076; 83735; 85025; 96361; 96375; 96413; 96417; J1100; J2469; J7030; J9070; J9171

== ENCOUNTER 2017-11-10 08:09 | Day surgery (SDC) | payer OTHER ==
[~2017-11-10 08:09] MED LIST changes: +CYCLOPHOSPHAMIDE IVPB ONE; +DEXAMETHASONE INJECTION 20 MG in SODIUM CHLORIDE 100 ML IVPB ONE; +DEXAMETHASONE INJECTION 20 MG, DIPHENHYDRAMINE 50 MG, RANITIDINE INJECTION 50 MG in SOD... IVPB ONE; +DOCETAXEL IV ONE; +PALONOSETRON HCL 0.25 MG/5 ML VIAL IVPUSH ONE; +SODIUM CHLORIDE IV ONE; +SODIUM CHLORIDE IVPB ONE; -TBO-FILGRASTIM 300 MCG/0.5 ML DISP.SYRINGE SQ ONE
[2017-11-10] MEDS ORDERED: SODIUM CHLORIDE IVPB ONE (08:30)
[2017-11-10] MEDS ORDERED: CYCLOPHOSPHAMIDE IVPB ONE (08:30)
[2017-11-10] MEDS ORDERED: DOCETAXEL IV ONE (09:00)
[2017-11-10] MEDS ORDERED: SODIUM CHLORIDE IV ONE (09:00)
[2017-11-10 10:27] VITALS: BP 96/60; PULSE 84
[2017-11-10 11:21] LABS: BASO % 1.3 % (0-2.0); EOS % 1.3 % (0-4.5); HEMATOCRIT 32.7 % (32.4-45.2); LYMPH % 25.7 % (8-40); MCH 30.4 pg (25.7-33.7); MCHC 33.7 g/dl (32.0-36.0); MEAN CELL VOLUME 90.2 fl (80-96); MEAN PLT VOLUME 11.3 fl (7.5-11.1); MONO % 8.1 % (3.8-10.2); NEUT % 63.6 % (42.8-82.8); PLATELET COUNT 183 K/MM3 (134-434); RBC 3.62 M/mm3 (3.60-5.2); RDW 15.3 % (11.6-15.6); WHITE BLOOD COUNT 4.7 K/mm3 (4.0-10.0)
[2017-11-10 11:42] LABS: ALBUMIN 3.7 g/dl (3.4-5.0); ANION GAP 6 (8-16); BILIRUBIN,TOTAL 0.2 mg/dL (0.2-1.0); BLOOD UREA NITROGEN 17 mg/dL (7-18); CALCIUM 8.3 mg/dL (8.5-10.1); CHLORIDE 108 mmol/L (98-107); CO2 28 mmol/L (21-32); CREATININE 0.5 mg/dL (0.55-1.02); GLUCOSE,RANDOM 94 mg/dL (74-106); POTASSIUM 3.9 mmol/L (3.5-5.1); SGOT/AST 16 U/L (15-37); SGPT/ALT 22 U/L (12-78); SODIUM 142 mmol/L (136-145); TOT PROT 6.8 g/dl (6.4-8.2)
[2017-11-10 11:43] LABS: ALK PHOS 79 U/L (45-117)
[2017-11-10 12:14] LABS: BILIRUBIN,DIRECT < 0.2 mg/dL (0.0-0.2); MAGNESIUM 2.2 mg/dL (1.8-2.4)
[2017-11-10] MEDS ORDERED: SODIUM CHLORIDE 500 ML IV SCH (12:15)
[2017-11-10 18:45] VITALS: TEMP 98.2
== END 2017-11-10 17:45 | disposition home or self-care (01) ==
LOC: JONCCHEMO 08:09 → J7W 12:29 → JONCCHEMO 17:45
PROVIDERS: ATTEND Internal Medicine Hematology & Oncology
DX: Z51.11 Encounter for antineoplastic chemotherapy (principal); C50.812 Malignant neoplasm of overlapping sites of left female breast; Z17.0 Estrogen receptor positive status [ER+]
CPT/HCPCS: 36415; 80053; 80076; 83735; 85025; 96361; 96413; 96415; 96417; J1100; J2469; J7030; J9070; J9171

== ENCOUNTER 2020-06-18 06:40 | Inpatient (IN) | payer OTHER ==
[2020-06-18 08:18] VITALS: BMI 24.9
[2020-06-18] MEDS ORDERED: CITRIC ACID/SODIUM CITRATE 30 ML UNIT-DOSE CUP PO ONE (09:26)
[2020-06-18] MEDS ORDERED: morphine SULFATE/PF 0.5 MG/ML (2cc Syringe - QUVA) ONE (11:34)
[2020-06-18] MEDS ORDERED: morphine SULFATE/PF 0.5 MG/ML (2cc Syringe - QUVA) EP ONE (14:45)
[2020-06-18] MEDS ORDERED: OXYTOCIN 10 UNITS/ML VIAL ONE (14:55)
[2020-06-18] MEDS ORDERED: ceFAZolin SODIUM 1 GM VIAL ONE (14:55)
[2020-06-18] MEDS ORDERED: KETOROLAC TROMETHAMINE 30 MG/1 ML VIAL ONE (14:55)
[2020-06-18] MEDS ORDERED: IBUPROFEN 600 MG TABLET (FP) PO PRN (15:54)
[2020-06-18] MEDS ORDERED: ONDANSETRON 4 MG/2 ML VIAL IVPB PRN (15:54)
[2020-06-18] MEDS ORDERED: IBUPROFEN 800 MG/8 ML IJ IVPB PRN (15:54)
[2020-06-18] MEDS ORDERED: SENNOSIDES/DOCUSATE COMBO (SENNA PLUS) TABLET (UD) PO PRN (15:54)
[2020-06-18] MEDS ORDERED: ACETAMINOPHEN 325 MG TABLET (FP) PO PRN (15:54)
[2020-06-18] MEDS ORDERED: ACETAMINOPHEN 1000 MG/100 ML VIAL (NON FORMULARY) IVPB PRN (15:54)
[2020-06-18] MEDS ORDERED: SIMETHICONE 80 MG TAB.CHEW (FP) PO PRN (15:54)
[2020-06-18] MEDS ORDERED: oxyCODONE HCL 5 MG TABLET PO PRN (15:54)
[2020-06-18] MEDS ORDERED: OXYTOCIN 20 UNITS in 0.9% NS 20 UNIT/1,000 ML INFUS.BAG IV SCH (16:00)
[2020-06-18] MEDS ORDERED: ACETAMINOPHEN 1000 MG/100 ML VIAL (NON FORMULARY) IVPB ONE (16:36)
[2020-06-18] MEDS ORDERED: ACETAMINOPHEN INJECTION 100 ML IVPB ONE (16:39)
[2020-06-18] MEDS ORDERED: OXYTOCIN 20 UNITS in 0.9% NS 20 UNIT/1,000 ML INFUS.BAG IV ONE (16:39)
[2020-06-18] MEDS ORDERED: CEFAZOLIN 2 GM/D5W 2 GM/50 ML ML IVPB ONE (18:19)
[2020-06-18] MEDS: CEFAZOLIN 2 GM/D5W 2 GM/50 ML ML IVPB SCH (18:23)
[2020-06-18] MEDS ORDERED: ONDANSETRON 4 MG/2 ML VIAL ONE (19:01)
[2020-06-19] MEDS: CEFAZOLIN 2 GM/D5W 2 GM/50 ML ML IVPB SCH (01:33)
[2020-06-19 11:01] LABS: BASO % 0.7 % (0-2.0); EOS % 0.4 % (0-4.5); HEMATOCRIT 36.6 % (32.4-45.2); HEMOGLOBIN 12.1 GM/dL (10.7-15.3); LYMPH % 15.4 % (8-40); MCH 31.3 pg (25.7-33.7); MCHC 33.1 g/dl (32.0-36.0); MEAN CELL VOLUME 94.4 fl (80-96); MEAN PLT VOLUME 12.5 fl (7.5-11.1); MONO % 4.5 % (3.8-10.2); PLATELET COUNT 103 K/MM3 (134-434); RBC 3.88 M/mm3 (3.60-5.2); RDW 13.9 % (11.6-15.6); WHITE BLOOD COUNT 10.6 K/mm3 (4.0-10.0)
[2020-06-19] MEDS: ENOXAPARIN NA (PORCINE) 30 MG/0.3 ML DISP.SYRIN SQ SCH (11:05)
[2020-06-19] MEDS ORDERED: BISACODYL 10 MG SUPP.RECT RC PRN (15:57)
[2020-06-20 08:51] VITALS: BP 100/56; PULSE 71; TEMP 98.1
[2020-06-20] MEDS: ENOXAPARIN NA (PORCINE) 30 MG/0.3 ML DISP.SYRIN SQ SCH (09:16)
== END 2020-06-20 14:45 | disposition home or self-care (01) | DRG 540 ==
LOC: JLDR 06:40 → J3W 19:30
PROVIDERS: ADMIT Specialist; ATTEND Specialist
PROC: 10D00Z1 Extraction of Products of Conception, Low, Open Approach (ICD-10-PCS; principal; 2020-06-18)
DX: O34.219 Maternal care for unspecified type scar from previous cesarean delivery (principal); Z37.0 Single live birth; O99.824 Streptococcus B carrier state complicating childbirth; B95.1 Streptococcus, group B, as the cause of diseases classified elsewhere; O99.284 Endocrine, nutritional and metabolic diseases complicating childbirth; E03.9 Hypothyroidism, unspecified; Z3A.39 39 weeks gestation of pregnancy; Z87.448 Personal history of other diseases of urinary system
CPT/HCPCS: 36415; 85025; 88307-TC; J0131